=== PATIENT | male | born 1965 | race Two or more races ===

== ENCOUNTER 2019-10-17 12:45 | Outpatient (CLI) | payer OTHER | END 2019-10-17 23:59 | disposition home or self-care (01) | LOC: WOU 12:45 | PROVIDERS: ATTEND Specialist | DX: Z01.818 Encounter for other preprocedural examination (principal); H91.21 Sudden idiopathic hearing loss, right ear; F17.200 Nicotine dependence, unspecified, uncomplicated; Z86.61 Personal history of infections of the central nervous system | CPT/HCPCS: G0463 ==